=== PATIENT | female | born 1950 | race Caucasian/White ===

== ENCOUNTER 2023-12-14 13:18 | Emergency (ER) | payer OTHER, MEDICARE, SELFPAY ==
[2023-12-14 13:21] VITALS: BP 219/118; PULSE 109; RESP 17; TEMP 36.2; O2SAT 97; BMI 29.0
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
[2023-12-14] MEDS: Ondansetron 4 MG/2 ML Vial IV (13:43)
[2023-12-14] MEDS: Morphine 4 MG/ML Syringe IV (13:43)
[2023-12-14 13:51] VITALS: BP 193/118; PULSE 110; RESP 18; O2SAT 100
[2023-12-14] MEDS: 0.9% Normal Saline (1000mL) 1,000 ML 150 ML IV (13:51)
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
[2023-12-14 13:52] LABS: Absolute Lymphocyte Count 2.33 X10^3/uL (0.83-4.51); Absolute Neutrophil Count 4.4 X10^3/uL (2.0-7.7); Basophil# 0.05 X10^3/uL; Basophil% 0.7 % (0-1); Eosinophil# 0.15 X10^3/uL; Hematocrit 39.6 % (37-47); Hemoglobin 14.2 g/dL (12.0-15.0); Lymphocyte # 2.33 X10^3/ul (0.83-4.51); Lymphocyte % 31.2 % (19-41); Mean Corp Hgb Conc 35.9 g/dL (32-36); Mean Corpuscular Hgb 29.8 pg (27.0-32.0); Mean Platelet Vol. 9.5 fl (6.2-12.0); Monocyte# 0.54 X10^3/uL; Monocyte% 7.2 % (0-10); NRBC Flagged by Analyzer 0 % (0-5); Neutrophil # 4.37 X10^3/uL (2.7-7.7); Neutrophil % 58.5 % (47-70); Platelet Count 256 K/mm3 (150-450); RBC Distribution Width CV 13.2 % (11.6-14.6); RBC Distribution Width SD 39.8 fl (35.1-43.9); Red Blood Count 4.77 M/mm3 (4.2-5.4); White Blood Count 7.5 K/mm3 (4.4-11.0)
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
[2023-12-14 14:01] LABS: Prothrombin Time (Protime)PT. 12.9 SECONDS (11.7-14.9)
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
[2023-12-14 14:10] LABS: AST(SGOT) 22 U/L (15-37); Alanine Aminotransfer ALT/SGPT 36 U/L (13-56); Albumin, Serum 3.9 g/dL (3.2-5.0); Alkaline Phosphatase 106 U/L (45-117); Anion Gap 10 (5-15); BUN 19 mg/dL (7-18); BUN/Creat Ratio 15.8 RATIO (10-20); Bilirubin, Direct 0.12 mg/dL (0.00-0.30); Calcium,Total 9.2 mg/dL (8.5-10.1); Chloride 105 mmol/L (98-107); EST Glomerular Filtration Rate 47 mL/min (>60); Est Glom Filt Rate - Afr Amer 57 mL/min (>60); Estimated Creatinine Clearance 43.37 ml/min; Globulin 3.6 g/dL (2.2-4.2); Glucose 218 mg/dL (74-106); Protein, Total 7.5 g/dL (6.4-8.2); Sodium Level 138 mmol/L (136-145); Troponin-I HS (w/2H Reflex) 43 pg/mL (3.0-54.0)
[2023-12-14] MEDS: DiphenhydrAMINE 50 MG/ML Syringe 25 MG IV (14:16)
[2023-12-14 14:51] VITALS: BP 174/120; PULSE 78; RESP 16; O2SAT 98
[2023-12-14 15:00] VITALS: BP 191/104; PULSE 99; RESP 19; O2SAT 97
[2023-12-14] MEDS: hydrALAZINE 20 MG/ML Vial 10 MG IV (15:21)
[2023-12-14 15:49] LABS: Reflex Troponin-HS? (from REC) Y
[2023-12-14 16:00] VITALS: BP 205/95; PULSE 99; RESP 16; O2SAT 98
[2023-12-14] MEDS: Labetalol (Prefilled) 20 MG/4 ML IV (16:06)
[2023-12-14 16:41] VITALS: BP 171/95; PULSE 78; RESP 16; TEMP 36.6; O2SAT 99
== END 2023-12-14 16:42 | disposition home or self-care (01) ==
PROVIDERS: Emergency Provider Emergency Medicine; Visit Provider Emergency Medicine
DX: S20.20XA Contusion of thorax, unspecified, initial encounter (principal); I10 Essential (primary) hypertension; M54.9 Dorsalgia, unspecified; E78.5 Hyperlipidemia, unspecified; R06.00 Dyspnea, unspecified; R51.9 Headache, unspecified; F41.9 Anxiety disorder, unspecified; M48.02 Spinal stenosis, cervical region; K57.90 Diverticulosis of intestine, part unspecified, without perforation or abscess without bleeding; R16.0 Hepatomegaly, not elsewhere classified; K76.0 Fatty (change of) liver, not elsewhere classified; V43.52XA Car driver injured in collision with other type car in traffic accident, initial encounter
CPT/HCPCS: 70450; 71045; 71275; 72125; 74174; 80048; 80076; 84484; 85025; 85610; 85730; 93005; 96361; 96374; 96375; 99284; J7030; Q9967; A4216; J2405